=== PATIENT | female | born 1950 | race Asian ===

== ENCOUNTER 2016-05-15 07:55 | Day surgery (SDC) | payer OTHER ==
[~2016-05-15] VITALS: Ht 152.4 cm; Wt 47.2 kg
[2016-05-15] MEDS ORDERED: GLUCOPHAGE XR500 MG PO (09:08)
[2016-05-15] MEDS ORDERED: LIDOCAINE 2% 1000 MG/50 ML VIAL INJ ONE (09:56)
== END 2016-05-15 11:50 | disposition home or self-care (01) ==
LOC: MDS 07:55 → MMU 07:56 → MDS 11:50
PROVIDERS: ATTEND Internal Medicine Gastroenterology
DX: B19.10 Unspecified viral hepatitis B without hepatic coma (principal)
CPT/HCPCS: 36415; 47000; 76942; 80076; 82948; 85025; 85610; 85730; 88172; J2001; Q0092